=== PATIENT | female | born 1970 | race Caucasian/White ===

== ENCOUNTER 2022-10-26 08:35 | Outpatient (CLI) | payer OTHER, SELFPAY ==
--- NOTE | 2022-10-26 07:26 | PM.ANHP ---
HPI - Pre-Anesthesia History of Present Illness Date Seen: 10/26/22 Date of service: 10/26/22 Reason for visit: preop for colonoscopy Source: patient and old records reviewed Review of Systems Status of ROS Reports: 10 or more systems reviewed and unremarkable except as noted in History and below [facility] Surgical History (Updated 09/27/22 @ 04:35 by Iris Bernal APRN, DIRECTOR OF PURCHASING) History of arthroplasty of left knee ?Z96.652 - Presence of left artificial knee joint (ICD-10) History of cholecystectomy ?Z90.49 - Acquired absence of other specified parts of digestive tract (ICD-10) History of vaginal hysterectomy ?Z90.710 - Acquired absence of both cervix and uterus (ICD-10) History of appendectomy ?Z90.49 - Acquired absence of other specified parts of digestive tract (ICD-10) Family History (Updated 09/27/22 @ 04:37 by Iris Bernal APRN, DIRECTOR OF PURCHASING) Father Prostate cancer, Onset Age: 65 Maternal Grandmother Heart disease, Onset Age: 75 Maternal Grandfather Colon cancer, Onset Age: 50 Paternal Grandmother Breast cancer, Onset Age: 75 Paternal Grandfather Lung cancer, Onset Age: 75 Social History (Updated 09/27/22 @ 04:38 by Iris Bernal APRN, DIRECTOR OF PURCHASING) Narrative: . 3 children. Registered nurse. Exercise formally 2 x/week. Non-smoker. Alcohol, 2 servings per week. No illicit drug use. Smoking Status: Never smoker Little interest or pleasure in doing things: not at all Feeling down, depressed, or hopeless: not at all Meds Home Medications and Allergies Home Medications Medication Instructions Recorded Confirmed Type estradiol 1 mg tablet 1 mg PO DAILY 09/18/22 09/18/22 History ibuprofen-diphenhydramine citrate 1 cap PO QHS PRN 09/18/22 09/18/22 History 200 mg-38 mg tablet (Advil PM) linaclotide 290 mcg capsule 290 mcg PO 3XW 09/18/22 09/18/22 History (Linzess) lorazepam 0.5 mg tablet 0.5 mg PO BID PRN 09/18/22 09/18/22 History melatonin 10 mg capsule 10 mg PO QHS 09/18/22 09/18/22 History gcuaywbjgnjr-Fr-hpgs-minerals 18 tab PO 09/18/22 09/18/22 History mg-0.4 mg tablet rizatriptan 10 mg disintegrating mg PO 09/18/22 09/18/22 History tablet topiramate 25 mg tablet 50 mg PO 09/18/22 09/18/22 History Allergies Allergy/AdvReac Type Severity Reaction Status Date / Time tramadol Allergy Verified 09/18/22 16:50 Exam Const Documenting provider has reviewed patient's vital signs: yes Common normals: no apparent distress, oriented x3, healthy appearing, alert and well nourished General appearance: cooperative and comfortable Orientation/consciousness: Yes awake HENMT Common normals: normocephalic Head and scalp: normocephalic Neck & C-Spine Common normals: full ROM Chest Chest: symmetrical chest wall rise Resp Common normals: normal respiratory effort, no retractions, no use of accessory muscles and clear to auscultation bilaterally Auscultation: clear to auscultation bilaterally Cardio Common normals: regular rate, regular rhythm, S1 normal heart sound, S2 normal heart sound and no murmurs Rate: regular rate Rhythm: regular rhythm Heart sounds: S1 normal and S2 normal Neuro Common normals: oriented x3 Sensorium/orientation: awake and alert Assessment and Plan Assessment and plan (1) Colonoscopy planned: Status: Acute Plan no contraindication for sedation and colonoscopy
--- NOTE | 2022-10-26 07:26 | W.ANESCHARGE ---
Anesthesia Charges Start Date/Time Anesthesia Start Date: 10/26/22 Anesthesia Start Time: 09:45 Stop Date/Time Anesthesia Stop Date: 10/26/22 Anesthesia Stop Time: 10:09
--- NOTE | 2022-10-26 10:13 | W.ANESCHARGE ---
Anesthesia Charges Start Date/Time Anesthesia Start Date: 10/26/22 Anesthesia Start Time: 09:45 Stop Date/Time Anesthesia Stop Date: 10/26/22 Anesthesia Stop Time: 10:09
== END 2022-10-26 08:36 | disposition home or self-care (01) ==
LOC: OP CLINIC 08:37
PROVIDERS: PCP Nurse Practitioner Family; Visit Provider Internal Medicine
DX: Z12.11 Encounter for screening for malignant neoplasm of colon (principal); K64.8 Other hemorrhoids; Z80.0 Family history of malignant neoplasm of digestive organs
CPT/HCPCS: 45378; 812; J2405; J2704

== ENCOUNTER 2023-08-30 07:40 | Outpatient (CLI) | payer OTHER, SELFPAY ==
--- NOTE | 2023-08-30 07:45 | MM_ITS ---
Patient: IRENA LEDBETTER Facility:?[facility] Patient ID:?[id number] Site Patient ID:?[id number]. Site :?[id number] Study:?XRay-Breast Bilateral 3D W/CAD-08/30/2023 9:06:47 AM Ordering Physician:?Iris Bernal Final Report: BILATERAL SCREENING MAMMOGRAM WITH COMPUTER-AIDED DETECTION AND TOMOSYNTHESIS TECHNIQUE: CC and MLO views were obtained. These mammographic images have been obtained using full-field digital technique. These mammographic images were interpreted with the benefit of computer-aided detection. Breast Tomosynthesis was used in this interpretation. COMPARISON FILM: 10/30/22, 08/28/21, 08/10/20. FINDINGS: There are scattered areas of fibroglandular density. IMPRESSION: There is no radiographic evidence for malignancy. ASSESSMENT: BI-RADS Category 1: Negative RECOMMENDATION: Routine screening mammogram in 1 year. A lay language report of this examination will be provided to the patient. Raffi Simpson M.D. Diagnostic Radiologist [email or web address] DSM/sp R& Transcribed: 2:02 p.m. SP/Dictated by: Raffi Simpson MD @ 09/03/2023 9:49:00 AM Signed by:?Raffi Simpson MD @09/03/2023 2:33:47 PM (Electronic Signature)
== END 2023-08-30 07:41 | disposition home or self-care (01) ==
LOC: MAMMO 07:41
PROVIDERS: PCP Nurse Practitioner Family; Visit Provider Nurse Practitioner Family
DX: Z12.31 Encounter for screening mammogram for malignant neoplasm of breast (principal)
CPT/HCPCS: 77063; 77067

== ENCOUNTER 2024-02-28 08:33 | Outpatient (CLI) | payer OTHER, SELFPAY | END 2024-02-28 08:34 | disposition home or self-care (01) | PROVIDERS: PCP Nurse Practitioner Family; Visit Provider Nurse Practitioner Family | DX: R10.13 Epigastric pain (principal) | CPT/HCPCS: 80053; 80061; 82150; 83690; 85025; 86231; 86258; 86364 ==

== ENCOUNTER 2025-02-01 09:14 | Outpatient (CLI) | payer OTHER, SELFPAY | END 2025-02-01 09:15 | disposition home or self-care (01) | PROVIDERS: PCP Nurse Practitioner Family; Visit Provider Nurse Practitioner Family | DX: R10.9 Unspecified abdominal pain (principal); R13.10 Dysphagia, unspecified; K58.1 Irritable bowel syndrome with constipation; N95.9 Unspecified menopausal and perimenopausal disorder; F41.9 Anxiety disorder, unspecified; Z13.0 Encounter for screening for diseases of the blood and blood-forming organs and certain disorders involving the immune mechanism | CPT/HCPCS: 80053; 81001; 84443; 85025 ==